=== PATIENT | male | born 1955 | race African-American/Black ===

== ENCOUNTER 2016-10-20 10:03 | Day surgery (SDC) | payer MEDICAID ==
[~2016-10-20] VITALS: Ht 185.4 cm; Wt 75.0 kg
[2016-10-20] MEDS ORDERED: VITAMIN B-1000 MCG/M IM (11:28)
[2016-10-20] MEDS ORDERED: REMERON15 MG PO (11:28)
[2016-10-20] MEDS ORDERED: INVEGA6 MG/BLIST PO (11:30)
[2016-10-20] MEDS ORDERED: BAYER CHEWABLE81 MG PO (11:30)
[2016-10-20] MEDS ORDERED: FANAPT12 MG PO (11:31)
[2016-10-20 11:33] VITALS: BP 120/67; Ht 185.4 cm; Wt 75.0 kg
[2016-10-20 11:45] LABS: BASOPHILS 0.3 % (0.0-2.0); EOSINOPHILS 8.8 % (0-7); HEMATOCRIT 42.7 % (42.0-54.0); IMMATURE GRANULOCYTES 0.3 % (0-5); LYMPHOCYTES 41.2 % (15-50); MCHC 32.8 g/dL (31.0-37.0); MCV 88.4 fL (80.0-100.0); MEAN PLATELET VOLUME 11.2 fL (7.4-10.4); MONOCYTES 9.5 % (2-11); NEUTROPHILS 39.9 % (40-80); PLATELET COUNT 148 10x3/uL (130-400); RBC 4.83 10x6/uL (4.20-6.10); RDW 13.5 % (11.5-14.5); WBC 3.9 10x3/uL (4.8-10.8)
[2016-10-20 11:56] LABS: ANION GAP 11.2 mmol/L (8-16); CALCIUM 8.7 mg/dL (8.5-10.1); CARBON DIOXIDE 28.9 mmol/L (21.0-32.0); CREATININE - SERUM 1.1 mg/dL (0.6-1.3); POTASSIUM - SERUM 4.1 mmol/L (3.5-5.1)
--- NOTE | 2016-11-04 12:04 | OP ---
PATIENT NAME: LEIDY ARCHULETA MEDICAL RECORD: [id number] :57 LOCATION:D.OPS ADMISSION DATE: SURGEON: NEELA DE LA TORRE DO DATE OF OPERATION: 10/20/2016 PROCEDURE: Colonoscopy with polypectomy and biopsy as well as hemostasis with endoclipping. ENDOSCOPIST: Neela De La Torre DO. SCOPE: Olympus video colonoscope. MEDICATIONS: Propofol 220 mg IV per anesthesia. INDICATION FOR PROCEDURE: History of colon polyps. FINDINGS: Informed consent was given. The patient was made comfortable with the above medications. After reaching an adequate level of sedation by slow IV push, the patient was placed in his left side. The endoscope was then advanced directly under visualization through the anus to the cecum. The cecal folds and ileocecal valve were visualized. The prep was good. In the transverse colon, there were 2 polyps. The first was a semi-pedunculated polyp measuring approximately 9 mm, which was removed by hot snare polypectomy. There was some bleeding from the base of the polyp which was not stopping on its own, so an endoclip was placed for hemostasis. There was a second diminutive sessile polyp measuring less than 5 mm just distal to this site. This was removed with cold forceps. Scope was then withdrawn into the descending colon where another semi-pedunculated polyp measuring approximately 9 mm was encountered. Hot snare polypectomy was performed. Again, there was some residual bleeding from the base of the polyp, which required hemostasis maneuvers in the form of one endoclip. The remainder of the colonoscopy was normal including the cecum, ascending colon, sigmoid colon, and rectum. The scope was withdrawn from the patient. The patient tolerated the procedure well and there were no complications. Withdrawal time was 20 minutes. IMPRESSION: Three colonic polyps removed via hot snare polypectomy and cold biopsy forceps. Hemostasis maneuvers performed with 2 endoclips on 2 of the polyps. RECOMMENDATIONS: 1. Continue current medications. 2. Continue high fiber diet. 3. Recall will be dependent on results of biopsy specimens. I anticipate a repeat in 3 years at this time. TRANSINT:[id number] Voice Confirmation ID: [id number] DOCUMENT ID: [id number] OPERATIVE REPORT [id number] LEIDY ARCHULETA NEELA DE LA TORRE DO at 1204 CC: [id number] DICTATION DATE: 10/20/16 1254 BILLER: 10/20/162028 [facility] 10/20/16 [facility] [address] [place] [address]
== END 2016-10-20 14:30 | disposition home or self-care (01) ==
LOC: D.OPS 10:03
PROVIDERS: Anesthesiology
DX: D12.4 Benign neoplasm of descending colon (principal); D12.3 Benign neoplasm of transverse colon

== ENCOUNTER 2016-11-13 13:17 | Day surgery (SDC) | payer MEDICAID ==
[~2016-11-13 13:17] MED LIST: BAYER CHEWABLE81 MG PO; FANAPT12 MG PO; INVEGA6 MG/BLIST PO; REMERON15 MG PO; VITAMIN B-1000 MCG/M IM
[2016-11-13 13:51] VITALS: BP 110/67; BMI 22.8
--- NOTE | 2016-11-13 15:54 | NUR ---
PT SITTING UP IN BED WITH HOB ELEVATED. SISTER AT BEDSIDE. VSS. FULL LIQUIDS TOLERATED. WILL CONTINUE TO MONITOR.
--- NOTE | 2016-11-13 16:15 | NUR ---
PT TOLERATED FULL LIQUID DIET. VSS. IV D/C'D, PT TOLERATED. CATHETER INTACT. DISCHARGE INSTRUCTIONS COMPLETED. SISTER AND PT VERBALIZED UNDERSTANDING. PAPERWORK SIGNED. PT DRESSING, READYING FOR DISCHARGE.
--- NOTE | 2016-11-13 16:30 | NUR ---
PT DISCHARGED WITH SISTER VIA WHEELCHAIR.
--- NOTE | 2016-11-18 09:05 | OP ---
PATIENT NAME: LEIDY ARCHULETA MEDICAL RECORD: [id number] :57 LOCATION:D.OPS ADMISSION DATE: SURGEON: NEELA SOARES DO DATE OF OPERATION: 11/13/2016 PROCEDURE: EGD with biopsies. SCOPE: Olympus video gastroscope. MEDICATIONS: Propofol 160 mg IV per anesthesia. INDICATIONS FOR PROCEDURE: Dysphagia, GERD, weight loss. FINDINGS: Informed consent was given. The patient was made comfortable with the above medication. After reaching an adequate level of sedation by slow IV push, the patient was placed on his left side. The endoscope was then advanced under direct visualization through the mouth to the second portion of the duodenum. The upper and middle esophagus appeared normal. In the distal third of the esophagus and GE junction, there were segment of grade I to grade II esophageal varices present. Scope was advanced through the GE junction and retroflexed to view the cardia and fundus. There was a small sliding hiatal hernia present involving the cardia as well as some gastric varices present within the fundus of the stomach. There were no stigmata present on the esophageal or gastric varices. The body of the stomach and antrum as well as the prepyloric area appeared normal. Random biopsies were taken to rule out H. pylori and to submit for histology. Scope was advanced through the bulb and second portion of the duodenum where mucosa was normal. The scope was withdrawn from the patient. The patient tolerated the procedure well and there were no complications. ESTIMATED BLOOD LOSS: Less than 3 cc. IMPRESSION: 1. Grade I to II esophageal varices. 2. Gastric varices. 3. Small sliding hiatal hernia. PLAN AND RECOMMENDATIONS: 1. Discharge home when recovery parameters are met. 2. Continue current diet. 3. Reflux precautions. 4. Omeprazole 40 mg daily for 8 weeks based on GERD symptoms. 5. We will schedule a modified barium swallow with speech therapy present regarding his oropharyngeal dysphagia, which he locates to his right side. TRANSINT:[id number] Voice Confirmation ID: [id number] DOCUMENT ID: [id number] OPERATIVE REPORT [id number] LEIDY ARCHULETA NEELA SOARES DO at 0905 CC: [id number] DICTATION DATE: 11/13/16 1506 [employer]ITE MIXING OPERATOR: 11/13/16 1558 [facility] 11/13/16 [facility] [address] [place] [address]
== END 2016-11-13 16:30 | disposition home or self-care (01) ==
LOC: D.OPS 13:17
DX: R13.10 Dysphagia, unspecified (principal); K21.9 Gastro-esophageal reflux disease without esophagitis; R63.4 Abnormal weight loss; K44.9 Diaphragmatic hernia without obstruction or gangrene; I85.00 Esophageal varices without bleeding; I86.4 Gastric varices

== ENCOUNTER → 2016-11-24 12:47 | Outpatient (CLI) | payer MEDICAID ==
[2016-11-13 13:51] VITALS: BMI 22.8
== END | disposition home or self-care (01) ==
LOC: D.RAD 12:47
DX: R13.10 Dysphagia, unspecified (principal); K21.9 Gastro-esophageal reflux disease without esophagitis; R63.4 Abnormal weight loss

== ENCOUNTER 2017-07-07 09:54 | Outpatient (CLI) | payer MEDICAID | END 2017-07-07 12:10 | LOC: D.OPS 09:54 | DX: R13.10 Dysphagia, unspecified (principal) ==

== ENCOUNTER 2017-12-06 00:43 | Emergency (ER) | payer MEDICAID | END 2017-12-06 02:59 | disposition home or self-care (01) | LOC: D.ER 00:43 | DX: S12.9XXD Fracture of neck, unspecified, subsequent encounter (principal); X58.XXXD Exposure to other specified factors, subsequent encounter; Z86.59 Personal history of other mental and behavioral disorders; W19.XXXA Unspecified fall, initial encounter; Y93.89 Activity, other specified; Y92.129 Unspecified place in nursing home as the place of occurrence of the external cause; K21.9 Gastro-esophageal reflux disease without esophagitis ==